=== PATIENT | male | born 1935 | race Caucasian/White ===

== ENCOUNTER 2018-08-11 19:53 | Inpatient (IN) | payer MEDICARE, OTHER ==
[~2018-08-11] VITALS: Ht 167.6 cm; Wt 54.5 kg
--- NOTE | ~2018-08-11 | EKG ---
[facility] [address] [facility] [place], [place] [address] Draft EK completed, results pending confirmation PATIENT NAME: DILIPELLIOTT Electrocardiogram DATE OF : 39 PHYSICIAN: PRELIMINARY REPORT #: [id number] REPORT IS CONFIDENTIAL AND NOT TO BE RELEASED WITHOUT AUTHORIZATION
--- OUTSIDE RECORDS SUMMARY | ~2018-08-11 | XMS | Clinical Summary ---
Demographics + + + | Address | [address] | | | [place] [address] | + + + | Home Phone | | + + + | Preferred Language | Unknown | + + + | Marital Status | | + + + | Methodist Affiliation | Unknown | + + + | Race | Unknown | + + + | Ethnic Group | Unknown | + + + Author + + + | Author | [facility] | | | and [place]to[place] | + + + | Organization | [facility] | | | and [place]to[place] [...] [place] | | | | | [phone] | | + + + + + Care Team Providers + +------+ + | Care Construction Analyst Name | Role | Phone | + [...] NEUROPATHY | | + +---+ | ATHEROSCLEROSIS, [place] ARTERY, EXTREMITY, WITH CLAUDICATION | | + [...] +--------+ +---------+--------+ | MEDICARE | MEDICA | [id number] | 09/29/19 | [phone] | | Medica | | | RE | | 03-Pre | 5 | | re | | | PART A | | sent | | | | | | AND B | | | | | | + +--------+ +--------+ +---------+--------+ | [employer] | BANKER | [id number] | | [phone] | | Indemn | [...] | | al/Fam | | 1936 | [phone] | [place] [address] | | | jorge | | | 7 (Home) | | + +--------+ +--------+ + +
[~2018-08-11 19:53] MED LIST: ASPIRIN325 MG PO; COD LIVER OIL1 EAC1 PO; DICLOFENAC SODI75 MG PO; ENALAPRIL MALEA20 MG PO; FOLIC ACID0.4 MG PO; GABAPENTIN300 MG PO; GABAPENTIN600 MG PO; LISINOPRIL30 MG PO; METHOCARBAMOL750 MG PO; MULTIVITAMINS1 EAC7 PO; OMEPRAZOLE20 MG PO
[2018-08-11] MEDS ORDERED: LISINOPRIL30 MG PO (20:08)
--- OUTSIDE RECORDS SUMMARY | 2018-08-11 20:47 | XMS | Clinical Summary ---
Demographics + + + | Address | [address] | | | [place] [address] | + + + | Home Phone | | + + + | Preferred Language | Unknown | + + + | Marital Status | | + + + | Yazidi Affiliation | Unknown | + + + | Race | Unknown | + + + | Ethnic Group | Unknown | + + + Author + + + | Author | [facility] | | | and [place]to[place] | + + + | Organization | [facility] | | | and Alebrtoana | + + + | Address | Unknown | + + + | Phone | Unavailable | + + + Support + + + + + | Name | Relationship | Address | Phone | + + + + + | Annamaria Merritt | ECON | [address] | | | | | [place] | | | | | [address] | | + + + + + Care Team Providers + +------+ + | Care Plate Maker Zinc Name | Role | Phone | + +------+ + | Saran Etienne DO | PP | | + +------+ + Allergies No Known Allergies Medications + + + +---------+------+------+-------+ | Medication | Sig | Dispensed | Refills | Star | End | Statu | | | | | | t | Date | s | | | | | | Date | | | + + + +---------+------+------+-------+ | aspirin (ASPIRIN | Take 81 mg by mouth | | 0 | 03/2 | | Activ | | EC LO-DOSE) 81 MG EC | Daily. | | | 2/20 | | e | | tablet | | | | 11 | | | + + + +---------+------+------+-------+ | diclofenac | Take 75 mg by mouth | | 0 | 03/2 | | Activ | | (VOLTAREN) 75 mg EC | Daily. | | | 2/20 | | e | | tablet | | | | 11 | | | + + + +---------+------+------+-------+ | lisinopril | Take 30 mg by mouth | | 0 | 03/2 | | Activ | | (PRINIVIL,ZESTRIL) | Daily. | | | 2/20 | | e | | 30 MG tablet | | | | 11 | | | + + + +---------+------+------+-------+ | multivitamin | Take 1 tablet daily | | 0 | 03/2 | | Activ | | (THERAGRAN) per | by mouth | | | 2/20 | | e | | tablet | | | | 11 | | | + + + +---------+------+------+-------+ | omeprazole | Take 20 mg by mouth | | 0 | / | | Activ | | (PRILOSEC) 20 mg | Daily. 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 | 07/19/2010 | + + + + + | Overview: ICD-10 Record update | + + + +---+ | HYPERTENSION | | + +---+ | PERIPHERAL NEUROPATHY | | + +---+ | ATHEROSCLEROSIS, [place] ARTERY, EXTREMITY, WITH CLAUDICATION | | + +---+ + + | Overview: ICD-10 Record update | + + Social History + +-------+ +--------+------+ | Tobacco Use | Types | Packs/Day | Years | Date | | | | | Used | | + +-------+ +--------+------+ | Never Assessed | | | | | + +-------+ +--------+------+ + + + | Sex Assigned at | Date Recorded | | | | + + + | Not on file | | + + + + + + + | Job Start Date | Occupation | Industry | + + + + | Not on file | Not on file | Not on file | + + + + + + + + | Travel History | Travel Start | Travel End | + + + + + + | No recent travel history available. | + + Last Filed Vital Signs + + + + | Vital Sign | Reading | Time Taken | + + + + | Blood Pressure | 135/70 | 08/22/2011 0000 PDT | + + + + | Pulse | - | - | + + + + | Temperature | - | - | + + + + | Respiratory Rate | - | - | + + + + | Oxygen Saturation | - | - | + + + + | Inhaled Oxygen | - | - | | Concentration | | | + + + + | Weight | 66.7 kg (147 lb) | 08/22/2011 0000 PDT | + + + + | Height | 172.7 cm (5' 8") | 08/02/2010 0000 PDT | + + + + | Body Mass Index | 22.35 | 08/02/2010 0000 PDT | + + + + Plan of Treatment + + + + + | Health Maintenance | Due Date | Last Done | Comments | + + + + + | Vaccine: | | | | | Dtap/Tdap/Td (1 - | 7 | | | | Tdap) | | | | + + + + + | Vaccine: Zoster (1 | 06/04/198 | | | | of 2) | 8 | | | + + + + + | Vaccine: | | | | | Pneumococcal 65+ | 3 | | | | Low/Medium Risk (1 | | | | | of 2 - PCV13) | | | | + + + + + | Vaccine: Influenza | | | | | (Season Ended) | 9 | | | + + + + + Results Not on filefrom Last 3 Months Insurance + +--------+ +--------+ +---------+--------+ | Payer | Benefi | Subscriber | Effect | Phone | Address | Type | | | t Plan | ID | jeramy | | | | | | / | | Dates | | | | | | Group | | | | | | + +--------+ +--------+ +---------+--------+ | MEDICARE | MEDICA | [id number] | 09/29/19 | [phone] | | Medica | | | RE | | 03-Pre | 5 | | re | | | PART A | | sent | | | | | | AND B | | | | | | + +--------+ +--------+ +---------+--------+ | [employer] | BANKER | [id number] | | [phone] | | Indemn | | | S LIFE | | 015-Pr | 4 | | ity | | | INS | | esent | | | | + +--------+ +--------+ +---------+--------+ + +--------+ +--------+ + + | Guarantor Name | Accoun | Relation to | Date | Phone | Billing Address | | | t Type | Patient | of | | | | | | | | | | + +--------+ +--------+ + + | Sigifredo Merritt | Person | Self [birth year] | [address] | | | al/Fam | | 1936 | [phone] | [place] [address] | | | jorge | | | 7 (Home) | | + +--------+ +--------+ + +
--- OUTSIDE RECORDS SUMMARY | 2018-08-11 20:47 | XMS | Clinical Summary ---
Demographics + + + | Address | [address] | | | [place] [address] | + + + | Home Phone | | + + + | Preferred Language | Unknown | + + + | Marital Status | | + + + | Orthodoxy Affiliation | Unknown | + + + | Race | Unknown | + + + | Ethnic Group | Unknown | + + + Author + + + | Author | [facility] | | | and [place]to[place] | + + + | Organization | [facility] | | | and [place]to[place] | + + + | Address | Unknown | + + + | Phone | Unavailable | + + + Support + + + + + | Name | Relationship | Address | Phone | + + + + + | Annamaria Merritt | ECON | [address] | | | | | [place] | | | | | [address] | | + + + + + Care Team Providers + +------+ + | Care Pocket Setter Lockstitch Name | Role | Phone | + [...] NEUROPATHY | | + +---+ | ATHEROSCLEROSIS, [place] ARTERY, EXTREMITY, WITH CLAUDICATION | | + [...] +--------+ +---------+--------+ | MEDICARE | MEDICA | [id number] | 09/29/19 | [phone] | | Medica | | | RE | | 03-Pre | 5 | | re | | | PART A | | sent | | | | | | AND B | | | | | | + +--------+ +--------+ +---------+--------+ | [employer] | BANKER | [id number] | | [phone] | | Indemn | [...] | | al/Fam | | 1936 | [phone] | [place] [address] | | | jorge | | | 7 (Home) | | + +--------+ +--------+ + +
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
--- NOTE | 2018-08-11 23:27 | NUR ---
PT UTILIZES CALL LIGHT, STATES THAT HE IS FINSIHED HAVING BM. PT CLEANED IN BED. TOLERATED TURNING OK. PT REQUIRES REMINDING TO TURN SLOWLY. PT BECAME NAUSEATED DURING MOVEMENT, STATES IT HAS PASSED. PT DENIES FURTHER NEEDS AT THIS TIME. ATTENDS PLACED. CALL LIGHT IN REACH. FAMILY REMAINS IN ROOM. ROOM IN VIEW OF RN STATION.
--- NOTE | 2018-08-12 02:17 | NUR ---
PT ASSESSMENT COMPLETE. PT RATES PAIN 8/10 TO R HIP, PRN DILAUDID ADMINISTERED. CMS INTACT. HEEL PROTECTORS REMAIN IN PLACE. GHOTRA CATH DRAINING CLEAR, YELLOW URINE. ATTENDS IN PLACE. PT'S RESTING AT BEDSIDE, CONTINUES TO WAIT FOR FAMILY TO ARRIVE FROM [place]. PT DENIES FURTHER NEEDS AT THIS TIME. CALL LIGHT IN REACH. ROOM IN VIEW OF RN STATION.
--- NOTE | 2018-08-12 04:30 | NUR ---
PT RESTING IN BED WITH EYES CLOSED. RESPIRATIONS EVEN AND UNLABORED. PT APPEARS TO BE SLEEPING. CALL LIGHT IN REACH. ROOM IN VIEW OF RN STATION.
--- NOTE | 2018-08-12 06:41 | NUR ---
PT ASSESSMENT COMPLETE. PT RATING PAIN 10. PRN DILAUDID ADMINISTERED. CMS INTACT TO ALL EXTREMITIES. HEEL PROTECTOR IN PLACE TO RLE. GHOTRA CATH DRAINING YELLOW URINE. PT'S ATTENDS CHANGED, PT INCONTINENT OF STOOL. PT TOLERATED TURNING OK. MD IN ROOM TO DISCUSS POC WITH PT. PT DENIES QUESTIONS OR FURTHER NEEDS AT THIS TIME. CALL LIGHT IN REACH. ROOM IN VIEW OF RN STATION.
--- NOTE | 2018-08-12 06:48 | EKG ---
[facility] [address] [facility] [place], [place] [address] Signed Normal sinus rhythm Normal ECG When compared with ECG of 11-AUG-2018 21:06, (Unconfirmed) [place] interval has decreased Confirmed by WILLA CHAMBERS MD ([id number]) on 08/12/2018 6:47:46 AM Electronically Signed By: WILLA CHAMBERS MD 08/12/18 0648 PATIENT NAME: DILIPELLIOTTPRABHAKAR BAUMAN Electrocardiogram DATE OF : 39 PHYSICIAN: WILLA CHAMBERS MD REPORT #: [id number] REPORT IS CONFIDENTIAL AND NOT TO BE RELEASED WITHOUT AUTHORIZATION
--- NOTE | 2018-08-12 08:00 | NUR ---
PT GAVE VERBAL OK TO GIVE PHI TO HIS DAUGHTER JORGE LUIS.
--- NOTE | 2018-08-12 08:21 | NUR ---
PATIENT IS AWAKE. FACED WASHED PATIENT IS NPO, CALL LIGHT IN REACH NO OTHER NEEDS AT THIS TIME.
--- NOTE | 2018-08-12 10:07 | NUR ---
DISCUSSED POC AND HISTORY WITH DR CHAMBERS. PT DRINKS AT LEAST 6 BEERS/DAY, DR CHAMBERS WILL RECOMMEND BEERS WITH MEALS POST OP.
[2018-08-12] MEDS ORDERED: BACLOFEN10 MG PO (11:40)
[2018-08-12] MEDS ORDERED: EPIDIOLEX100 MG/1 M PO (11:41)
--- NOTE | 2018-08-12 12:24 | NUR ---
PT REMOVED HIS RING, PLACED IN A SPECEMIN CUP AND KEPT IN THE BATHROOM. UPPER DENTURES AND LOWER REMOVABLE ARE REMOVED. [place]OWN COMPLETE. ONCALL TO OR ABX HANGING ON LR.
--- NOTE | 2018-08-12 12:33 | NUR ---
PT OFF THE FLOOR TO OR. PREOP ABX HANGING, PER [place], DO NOT NEED TO CALL RX FOR TXA, THEY WILL GET IT.
--- NOTE | 2018-08-12 14:17 | NUR ---
PT IN SURGERY, WILL FOLLOW NEEDED
--- NOTE | 2018-08-12 15:14 | NUR ---
UPDATED PT FAMILY THAT THE PT IS IN PACU, GETTING AN XRAY. DR CARRANZA IS IN THE ROOM TALKING WTIH FAMILY. WILL RETURN AFTER RECOVERY.
--- NOTE | 2018-08-12 15:52 | NUR ---
08/12/18 1552 Genoveva Thomas 1502 PT ARRIVED IN PACU SLEEPY. 1510 OXYGEN REMOVED. SATS 95% ON RA. ICE TO R HIP. SPINAL LEVEL AT L-1. 1535 AP PELVIS OF R HIP DONE. NO C/O'S. PT TALKING TO STAFF.
--- NOTE | 2018-08-12 15:54 | NUR ---
PT RETURNED FROM PACU VIA BED WITH SHAVON JAIN AND YOGESH RN. PT AWAKE AND ALERT, VERY TALKITIVE. UNABLE TO GET WAVEFORM ON CPOX MACHINE, TRIED ALL FINGERS. CALL INTO RT FOR ASSISTANCE. PT IS PINK, ALERT, AND TALKING. NO MOVEMENT, NO FEELING BELOW UPPER THIGH. JAY PILLOW IN PLACE, ICE PACK IN PLACE. TR HOSE AND SCD IN PLACE.
--- NOTE | 2018-08-12 17:00 | NUR ---
PT STATES HE HAS SENSATION TO KNEE LEVEL, STILL CANNOT MOVE HIS TOES. DIFFICULT TO MAINTAIN CPOX, DESPITE SEVERAL SENSORS ON FINGERS AND FOREHEAD. PT TOLERATED WATER AND IS EATING JELLO AT THIS TIME. PT TOLERATING WELL. NO NAUSEA, NO VOMITING, NO PAIN AT THIS TIME. ICE REMOVED FROM HIP. JAY PILLOW IN PLACE, SCD, TR HOSE IN PLACE.
--- NOTE | 2018-08-12 17:57 | NUR ---
PT REPORTS NOT FEELING HUNGRY AT THIS TIME, HE IS TOLERATING WATER AND A FEW BITES OF JELLO. DOES NOT WANT ANYTHING ELSE AT THIS TIME. ON RIGHT LEG, PT HAS FEELING TO ANKLE, ON LEFT LET PT HAS FEELING TO KNEE. NO MOVEMENT OF TOES AT THIS TIME.
--- NOTE | 2018-08-12 18:18 | NUR ---
PT ARRIVED BACK FROM PACU, TALKING AND ALERT. PT REPORTS FEELING IS RETURNING, ANKLE LEVEL ON RIGHT AND KNEE LEVEL ON LEFT. NO MOVEMENT IN FEET AT THIS TIME. PT REPORTS NOT FEELING HUNGRY, HAS TOLERATED WATER AND JELLO. NO PAIN, NO NAUSEA. ICE IS OFF HIP AT THIS TIME. IVF RUNNING.
--- NOTE | 2018-08-12 18:38 | NUR ---
Medications reconciled using pharmacy records and patient interview
--- NOTE | 2018-08-12 19:10 | NUR ---
BEDSIDE REPORT RECEIVED FROM OFFGOING RN. PT RESTING IN BED WITH EYES CLOSED, DOES NOT WAKE DURING REPORTS. CALL LIGHT INR EACH. ROOM IN VIEW OF RN STATION.
--- NOTE | 2018-08-12 19:25 | NUR ---
HUNG NEW BAG OF FLUIDS. VSS. PT SPINAL RESOLVING, CALF ON RIGHT LEG, HEEL ON LEFT LEG. UNABLE TO WIGGLE TOES. ICE PACK REMOVED. NOT HUNGRY, BUT HAS TOLERATED WATER AND JELLO.
--- NOTE | 2018-08-12 22:10 | NUR ---
V/S AND I&O DONE AND CHARTED. UPPER DENTURE CLEANED AND PATIENT WANTS TO HAVE IT BACK ON.
--- NOTE | 2018-08-12 23:25 | NUR ---
PT ASSESSMENT COMPLETE. PT RATES PAIN "MIDDLE OF THE ROAD", AGREES THAT IT IS 5/10. DENIES NAUSEA OR SOB AT THIS TIME. WILLAM DRESSING WITH SMALL AMOUNT OF RED SHADOWING PRESENT, WITHIN OUTLINED AREA. GREEN LIGHT FLASHING ON WILLAM BOX. SPINAL RESOLVED. CMS INTACT. ABDUCTOR PILLOW IN PLACE. SCD'S AND HEEL PROTECTORS PRESENT BILATERALLY. PT REMAINS DROWSY BUT WAKES EASILY DURING ASSESSMENT. PT ASSISTED TO DRINK WATER, DENIES FURTHER NEEDS. CALL LIGHT IN REACH. ROOM IN VIEW OF RN STATION.
--- NOTE | 2018-08-13 00:41 | NUR ---
PT RESTING IN BED WITH EYES CLOSED. RESPIRATIONS EVEN AND UNLABORED. PT APPEARS TO BE SLEEPING. CALL LIGHT IN REACH. ROOM IN VIEW OF RN STATION.
--- NOTE | 2018-08-13 02:07 | NUR ---
V/S AND I&O DONDE AND CHARTED. ICE WATER REFILLED.
--- NOTE | 2018-08-13 03:03 | NUR ---
PT RESTING IN BED WITH EYES CLOSED. RESPIRATIONS EVEN AND UNLABORED. PT APPEARS TO BE SLEEPING. SAO2 100%. PT ASSESSMENT COMPLETE. PT DOES NOT WAKE TO TOUCH DURING ASSESSMENT. CONTINUOUS PULSE OX PRESENT. PT SNORING AUDIBLY. WILLAM DRESSING INTACT. SMALL AMOUNT OF SHADOWING PRESENT, UNCHANGED FROM PREVIOUS. GREEN "OK" LIGHT FLASHIN ON WILLAM BOX. PEDAL PULSES PRESENT BILATERALLY. ABDUCTOR PILLOW PRESENT. SCD'S AND HEEL PROTECTORS PRESENT BILATERALLY. GHOTRA DRAINING CLEAR YELLOW URINE. CALL LIGHT IN REACH. ROOM IN VIEW OF RN STATION.
--- NOTE | 2018-08-13 04:50 | NUR ---
PT SLEPT WELL THIS SHIFT. CPOX IN PLACE. SA02 IN HIGH 90'S TO 100% THROUGHOUT THE SHIFT. WILLAM DRESSING TO R HIP, SMALL AMOUNT OF OUTLINED SHADOWING PRESENT, UNCHANGED THIS SHIFT. CMS INTACT, PT DENIES NUMBNESS OR TINGLING IN EXTREMTITIES. ABDUCTOR PILLOW IN PLACE BETWEEN PT LEGS. TR HOSE, SCD'S, AND HEEL PROTECTORS IN PLACE BILATERALLY. GHOTRA CATH DRAINING CLEAR YELLOW URINE. ALLEVYN FOAM TO L HIP AND COCCYX. BEER WITH MEALS. D5LR +20K @ 125.
--- NOTE | 2018-08-13 06:55 | NUR ---
BEDSIDE HANDOFF REPORT RECEIVED FROM ACCOUNTANT BOOKKEEPER RN. PT RESTING IN BED. PT DENIES PAIN AT THIS TIME. PT DENIES NEEDS.
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
--- NOTE | 2018-08-13 07:45 | NUR ---
PT RESTING IN BED. PT RATING PAIN 4/10 TO RIGHT HIP, DISCUSSED PAIN MEDICATION THIS AM BEFORE P.T. PT ON ROOM AIR, LUNG SOUNDS CLEAR, DENIES SOB, O2 SATS 95%. PT DENIES NAUSEA, BOWEL TONES ACTIVE, TOLERATING REGULAR DIET. PT WITH GHOTRA CATH IN PLACE, DRAINING YELLOW URINE. WILLAM DRESSING TO RIGHT HIP, AIR LEAK PRESENT, REINFORCED WITH MEPILEX, SEALED WITH GREEN LIGHT FLASHING, PINPOINT DRAINAGE, UNCHANGED FROM OUTLINE. CMS INTACT, WITHOUT EDEMA, DENIES NUMBNESS TINGLING. IV FLUIDS INFUSING D5NS+20MEQ K AT 125ML/HR. PT DENIES OTHER NEEDS AT THIS TIME. DISCUSSED PLAN OF CARE AND THERAPY THIS AM.
--- NOTE | 2018-08-13 08:57 | NUR ---
Patient is awake. feeling alot better. ate his breakfast. fresh water given face washed. call light in reach.
--- NOTE | 2018-08-13 10:14 | NUR ---
PT ASSISTED FROM BEDSIDE COMMODE TO BED. PT WEAK 2PA TO STAND PIVOT. SCDS, HEEL PROTECTORS AND HIP WEDGE IN PLACE. PT DENIES OTHER NEEDS AT THIS TIME.
--- NOTE | 2018-08-13 12:09 | NUR ---
PT GIVEN A BEER WITH LUNCH PER ORDER.
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
--- NOTE | 2018-08-13 14:30 | NUR ---
PT DUE TO VOID, IV FLUIDS CONTINUE TO INFUSE AT 125 ML/HR. DISCUSSED WITH DR. CARRANZA, ORDER TO DC FLUIDS, INCREASE FLOMAX TO 0.8 MG DAILY, GIVE 0.4MG FLOMAX NOW AND TO PLACE GHOTRA IF BLADDER SCAN FOR >500 ML, RBOV.
--- NOTE | 2018-08-13 14:40 | NUR ---
PT ABLE TO VOID 100 ML OF URINE, BLADDER SCAN FOR 158 ML.
--- NOTE | 2018-08-13 14:53 | NUR ---
PT RESTING IN BED. PT RATING PAIN 5/10 TO RIGHT HIP, GIVEN 1 TAB NORCO. IV ANCEF INFUSING. PT DENIES OTHER NEEDS AT THIS TIME. FAMILY AT BEDSIDE.
--- NOTE | 2018-08-13 15:45 | NUR ---
PT SALINE LOCKED. PT RESTING IN BED. PT PROVIDED FRESH WATER. PT DENIES OTHER NEEDS AT THIS TIME.
--- NOTE | 2018-08-13 16:33 | NUR ---
PT ALERT/ORIENTED. PT ON ROOM AIR, LUNG SOUNDS CLEAR. PAIN WELL CONTROLLED WITH 1 TAB NORCO. WILLAM DRESSING TO RIGHT HIP, AIR LEAK THIS AM, REINFORCED, DRAINAGE UNCHANGED. PT WORKED WITH PHYSICAL THERAPY, ABLE TO WALK SHORT DISTANCE IN ROOM WITH 2PA AND FWW. GHOTRA REMOVED THIS AM, VOIDING QS. PT DENIES NAUSEA, TOLERATING REGULAR DIET, BEERS WITH MEALS. CMS INTACT. SCDS, HEEL PROTECTORS AND ABDUCTOR WEDGE. IV SALINE LOCKED.
--- NOTE | 2018-08-13 19:00 | NUR ---
SHIFT REPORT RECEIVED. PATIENT RESTING IN BED. APPEARS TO BE SLEEPING. RR 18. CALL LIGHT IN REACH, BED ALARM ON.
--- NOTE | 2018-08-13 20:45 | NUR ---
PATIENT PROVIDED WITH EVENING MEDICATIONS. REPORTS INCREASED PAIN 5/10, PRN NORCO PROVIDED. OFFERED PATIENT ICE PACKS, BUT PATIENT REFUSED. CMS INTACT IN [place] LOWER EXTREMITIES. WILLAM DRESSING ON RIGHT HIP, GREEN LIGHT FLASHING. NO NEW DRAINAGE NOTED, SMALL PIN POINT AREAS X2. PATIENT DENIES ANY CONCERNS. LUNGS ARE CLEAR. ABD SOFT AND NONTENDER. CIWA SCORE OF 2. REMINDED PATIENT TO USE CALL LIGHT, WHICH IS IN REACH. REPOSITIONED IN BED. ABD PILLOW, SCDS, AND HEEL PROTECTORS IN PLACE. BEDSIDE TABLE WITHIN REACH.
--- NOTE | 2018-08-13 22:02 | NUR ---
V/S AND I&O TAKEN AND CHARTED. ICE WATER REFILLED. PATIENT STATED NO NEEDS AT THIS TIME.
--- NOTE | 2018-08-13 22:30 | NUR ---
PATIENT CALLED TO HAVE URNAL EMPTIED. EVELYNE ROMANO ASSISTED PATIENT.
--- NOTE | 2018-08-13 23:39 | NUR ---
PATIENT APPEARS TO BE SLEEPING SOUNDLY. RR 18. CALL LIGHT IN REACH.
--- NOTE | 2018-08-14 03:00 | NUR ---
PATIENT REQUESTED HIS URNAL BE EMPTIED. PATIENT DENIES PAIN AT THIS TIME. WILLAM DRESSING IN PLACE, GREEN LIGHT NOTED. CMS INTACT. PATIENT AAOX4. CIWA SCORE OF 2, UNCHANGED. CALL LIGHT IN REACH.
--- NOTE | 2018-08-14 06:05 | NUR ---
PATIENT SLEPT WELL THIS SHIFT. PAIN WELL CONTROLLED WITH PRN PAIN MEDS X2. PATIENT HAS BEEN USING URNAL AND NOT BEEN UP THIS SHIFT. ENCOURAGED UP FOR BREAKFAST. WILLAM DRESSING INTACT, SCANT DRAINAGE NOTED. PATIENT'S CIWA REMAINED 2 THIS SHIFT WITH NO SIGNIFICANT SIGNS OF WITHDRAWL. SCDS AND ABDUCTOR PILLOW IN USE. VS STABLE. TOLERATING REGULAR DIET.
--- NOTE | 2018-08-14 06:50 | NUR ---
ASSISTED PATIENT UP TO THE RECLINER. PATIENT IS WEAK, 2PA WITH FWW. PAIN MINIMAL, BUT DIFFICULTY GETTING LEG TO MOVE AND LEFT KNEE APPEARED WEAK. PATIENT POSITIONED FOR COMFORT. WARM BLANKET PROVIDED AND BRUSH FOR HAIR. CALL LIGHT IN REACH.
--- NOTE | 2018-08-14 07:26 | NUR ---
BEDSIDE HANDOFF REPORT RECEIVED FROM TEACHER MUSIC RN. PT SITTING IN CHAIR. PT DENIES NEEDS AT THIS TIME.
--- NOTE | 2018-08-14 07:45 | NUR ---
PT SITTING IN CHAIR. PT ON ROOM AIR, LUNG SOUNDS CLEAR, DENIES SOB. PT REPORTING FEELING DIZZY AFTER NORCO THIS AM, BLOOD PRESSURE 109/58, HR 82, DISCUSSED SIDE EFFECT OF NORCO. PT DENIES NAUSEA, BOWEL TONES ACTIVE. CMS INTACT, WITHOUT EDEMA. WILLAM DRESSING TO RIGHT HIP, GREEN LIGHT FLASHING, NO NEW DRAINAGE. IV X2 SALINE LOCKED, FLUSHED, PATENT. DISCUSSED PLAN OF CARE FOR THE DAY. PT DENIES OTHER NEEDS AT THIS TIME.
--- NOTE | 2018-08-14 09:40 | NUR ---
MORNING MEDICATIONS ADMINISTERED. PT SITTING IN CHAIR. RIGHT AC IV DISCONTINUED. PT DENIES OTHER NEEDS AT THIS TIME.
--- NOTE | 2018-08-14 10:42 | NUR ---
PATIENT GOT UP TO [facility] FOR BREAKFAST. NOW HE IS LAYING IN BED AGAIN. WATER REFRSHED. CALL LIGHT IN REACH. NO FURTHER NEEDS AT THIS TIME.
--- NOTE | 2018-08-14 12:45 | NUR ---
PT RESTING IN BED. ABDUCTOR WEDGE ADJUSTED FOR COMFORT. PT PROVIDED WITH FRESH WATER. PT DENIES OTHER NEEDS AT THIS TIME.
--- NOTE | 2018-08-14 12:51 | NUR ---
CALLED MARCO ANTONIO IN [phone]--MESSAGE LEFT. CALLED SAMUEL DANIEL IN [place] AT [phone] MESSAGE LEFT. CALLED [facility] MESSAGE LEFT AT [phone], CALLED [phone] MESSAGE LEFT.
--- NOTE | 2018-08-14 13:38 | NUR ---
PT WAS SITTING IN CHAIR, ALERT AND ORIENTED. PT EXPRESSED RIGHT AWAY THAT HE DID NOT LIKE THE FEELING HE WAS HAVING FROM PAIN MEDS. THE "HIGH" HE STATED WAS NOT PLEASANT EXPERIENCE FOR HIM. PT MENTIONED HE HAD SHARED THIS WITH HIS RN AND DR. CARRANZA. PT WAS PLEASANT, EXTENDED A BLESSING. WILL FOLLOW NEEDED.
--- NOTE | 2018-08-14 15:34 | NUR ---
PATIENT IN BED RESTING. HE USED THE URINAL. WASN'T HUNGR FOR LUNCH. FAMILY IN ROOM. CALL LIGHT IN REACH. NO FURTHER NEEDS AT THIS TIME.
--- NOTE | 2018-08-14 15:37 | NUR ---
PT RESTING IN BED. REPOSITIONED. WILLAM DRESSING WORKING, NO NEW DRAINAGE. PT DENIES OTHER NEEDS AT THIS TIME. PT STATES PAIN IS TOLERABLE, DECLINES PAIN MEDICATION.
--- NOTE | 2018-08-14 17:30 | NUR ---
PT RATIGN PAIN -12/07, DISUCSSED PAIN MANAGEMENT, PT NERVOUS TO TRY NORCO AGAIN, GIVEN 0.5 TAB NORCO PER ORDER. DISCUSSED THAT IF PT HAS DIZZINESS OR FEELS "HIGH" THEN WE COULD CALL MD FOR ALTERNATIVE ORDER. PT DENIES OTHER NEEDS AT THIS TIME.
--- NOTE | 2018-08-14 18:11 | NUR ---
PT RESTING IN BED. PT ASSISTED WITH TELEVISION. CIWA ASSESSED, SCORE 2. PT DENIES OTHER NEEDS AT THIS TIME.
--- NOTE | 2018-08-14 18:25 | NUR ---
PT ALERT/ORIENTED. PT ON ROOM AIR, LUNG SOUNDS CLEAR. TOLERATING REGULAR DIET. WILLAM DRESSING TO RIGHT HIP, WITHOUT AIR LEAK, NO CHANGE IN DRAINAGE. PT WORKED WITH PT/OT. PT APPREHENSIVE TO TAKE PAIN MEDICATION, MINIMAL PAIN THROUGHOUT SHIFT, INCREASED PAIN IN EVENING, PT TOOK 0.5 TAB NORCO. PT VOIDING QS. CIWA SCORE OF 2. 2PA WITH FWW.
--- NOTE | 2018-08-14 18:40 | NUR ---
PT BLOOD PRESSURE REASSESSED, WNL. PT DENIES OTHER NEEDS AT THIS TIME.
--- NOTE | 2018-08-14 19:00 | NUR ---
SHIFT REPORT RECEIVED. PATIENT RESTING IN BED. DENIES ANY NEEDS AT THIS TIME.
--- NOTE | 2018-08-14 21:45 | NUR ---
EVENING MEDS GIVEN PER ORDER. PATIENT WAS SLEEPING SOUNDLY. WOKE TO VOICE AND TOUCH. PATIENT DENIES PAIN, RATES 3/10. WILLAM DRESSING INTACT, GREEN LIGHT NOTED. NO NEW DRAINAGE. CMS INTACT. DENIES THE USE OF ICE PACKS TO AREA. SCDS IN USE. PATIENT REFUSED HEEL PROTECTORS. DENTURES REMOVED, PLACED INTO CLEANING SOLUTION. BEDSIDE TABLE WITHIN REACH. CALL LIGHT IN HAND.
--- NOTE | 2018-08-14 22:30 | NUR ---
PATIENT'S URNAL EMPTIED. REPOSTIONED PATIENT IN BED. PATIENT DENIES PAIN. LIGHTS TURNED OUT. CALL LIGHT IN REACH.
--- NOTE | 2018-08-15 00:04 | NUR ---
PATIENT REQUESTED TO BE REPOSITIONED IN BED. PATIENT IS FRUSTERATED WITH THE ABDUCTOR PILLOW AND TRYING TO USE THE URNAL. REMOVED ABDUCTOR PILLOW FOR NOW, REMINDED PATIENT OF IMPORTANCE OF PROPER ALIGNMENT OF HIS HIP JOINT. PATIENT ALSO REPORTS PAIN IN HIS HEELS. DISCUSSED RISK OF BREAKDOWN AND USE OF HEEL PROTECTORS AND PATIENT AGREES TO USE THEM FOR THE TIME BEING. PATIENT ALSO AGREED TO HALF A PAIN PILL BUT VERBALIZED HIS DISLIKE OF NARCOTIC MEDICATIONS. ICE PACKS X2 PLACED ON RIGHT HIP. PATIENT DISLIKES THE COLD BUT AGREES TO TRY IT AT THIS TIME. URNAL EMPTIED. BEDSIDE TABLE IN REACH. SCDS ON. CALL LIGHT IN HAND. ALLOWED PATIENT TO REST.
--- NOTE | 2018-08-15 02:45 | NUR ---
ICE PACK IN PATIENT'S BED LEAKED. PATIENT DENIES PAIN AT REST. 2PA UP TO RECLINER, STAND PIVOT WITH FWW. PATIENT TOLERATED WELL. BED LINENS CHANGED. PATIENT ASSISTED BACK TO BED. FRESH ICE PACKS IN PLACE. PATIENT REPORTS PAIN WITH MOVEMENT BUT IS ABLE TO REST ONCE IN BED. DENIES FURTHER NEEDS. SCDS AND HEEL PROTECTORS IN PLACE. CALL LIGHT IN REACH.
--- NOTE | 2018-08-15 04:30 | NUR ---
PATIENT APPEARS TO BE SLEEPING SOUNDLY. RR 18. CALL LIGHT IN REACH.
--- NOTE | 2018-08-15 05:29 | NUR ---
PATIENT WAS ABLE TO SLEEP MOST THE NIGHT. USES URNAL, OUTPUT QS. PATIENT OUT OF BED ONCE THIS SHIFT. STAND PIVOT TO THE RECLINER, TOLERATED WELL. WILLAM DRESSING INTACT, MINIMAL DRAINAGE NOTED. PRN NORCO X1, 1/2 TAB PER PATIENT REQUEST. ICE PACKS TO AREA. HEEL PROTECTORS, SCDS, AND ABDUCTOR PILLOW TOLERATED. PATIENT AAOX4. NO SIGNS OF WITHDRAWL.
--- NOTE | 2018-08-15 06:57 | NUR ---
PATIENT UP TO RECLINER. 2PA WITH FWW. PATIENT TOLERATED WELL. BEDSIDE TABLE IN REACH. PATIENT DENIES FURTHER NEEDS.
--- NOTE | 2018-08-15 07:30 | NUR ---
REPORT RECIEVED FROM MATCHER LEATHER PARTS RN. T UP IN CHAIR FOR BREAKFAST. REPORTS PAIN 4.10 IN RIGHT HIP. NO FURTHER NEEDS. CALL LIGHT IN REACH.
--- NOTE | 2018-08-15 07:40 | NUR ---
PATIENT SITTING UP IN CHAIR. LINENS CHANGED. FACE AND HANDS CLEANED. ICE WATER GIVEN. CALL LIGHT WITHIN REACH. NO OTHER NEEDS AT THIS TIME
--- NOTE | 2018-08-15 09:00 | NUR ---
PHYSICAL THERAPY IN TO WORK WITH PT.
--- NOTE | 2018-08-15 09:05 | NUR ---
TALKED WITH THE PT THIS AM AND HE SAID HE IS WILLING TO GO TO [facility] FOR HIS REHAB, I HAD TALKED WITH [facility] PRIOR TO TALKING WITH THE PT TO SEE IF THEY WOULD BE ABLE TO TAKE HIM. SHE SAID THAT THERE WAS A POSS THEY MAY NOT BE ABLE TO. I THEN TALKED WITH THE PT ABOUT SOME OTHER OPTIONS AVAILABLE TO KEEP HIM IN THE AREA PER HIS WISHES, HE SAID TO CHECK WITH AND [place] [facility]. CALLED [facility] IN [place], THEY SAID THEY HAD A BED AVAILABLE. I ALSO CALLED [facility] AND MESSAGE WAS LEFT FOR THEM TO CALL ME.
--- NOTE | 2018-08-15 09:30 | NUR ---
PATIENT SITTING UP IN BED WATCHING TV. PATIENT USES THE URINAL. VITAL SIGNS AND I&O DONE. ICE WATER GIVEN. PATIENT USING A CLEAN GOWN. CALL LIGHT WITHIN REACH. NO OTHER NEEDS AT THIS TIME
--- NOTE | 2018-08-15 10:20 | NUR ---
TALKED WITH PT STEP DAUGHTER ELISSA AND SHE STATED SHE WAS ON HER WAY TO THE [facility] TO MEET HER SISTERS AND THEN TO TALK WITH ME. INFORMED HER TO LET THE STAFF KNOW WHEN THEY WERE HERE AND I WOULD COME RIGHT DOWN.
--- NOTE | 2018-08-15 10:53 | NUR ---
PT IN BED WITH SCD'S OIN PLACE.
--- NOTE | 2018-08-15 12:15 | NUR ---
PT IN BED, REFUSED LUNCH SATING, "I NEVER EAT LUNCH". REPORTS 5/10 PAIN IN RIGHT HIP. 0.5 TAB NORCO ADMINISTERED. ICE PACK APPLIED TO RIGHT HIP. SCD'S IN PLACE. CALL LIGHT IN REACH. FAMILY AT BEDSIDE.
--- NOTE | 2018-08-15 13:05 | NUR ---
STOPPED BY THE PTS ROOM AFTER BEING AT MEETING I HAD RECIEVED A MESSAGE AT 1230 THAT THEY WANTED TO VISIT WITH ME, I TOLD THE LARD BLEACHER I WOULD BE THERE SOON MY MEETING WAS DONE. WHEN WE STOPPED BY THE ROOM THE DAUGHTERS HAD LEFT. TALKED WITH PT AND HE STATED THINGS HAD CHANGED AND HE WOULD BE ABLE TO GO TO [facility] SO I BETTER LOOK INTO THAT. TOLD HIM I WOULD.
--- NOTE | 2018-08-15 13:18 | NUR ---
RECIEVED MESSAGE FROM SEBASTIÁN AT [facility], RETURNED CALL, SHE STATED THEY DO HAVE A MALE BED AVAILABLE. WILL SEND CLINICALS. ALSO HEARD FROM ZACK AT [facility] SHE WOULD LIKE CLINCALS FAXED TO [facility]. FAXED CLINICALS INCLUDING FACE SHEET, ER NOTES AND SUMMARY, H AND P, CONSULT, OP NOTE, PROG NOTE, PT AND OT EVAL AND NOTE. RECIEVED FAX CONFIRMATION FROM T.
--- NOTE | 2018-08-15 13:41 | NUR ---
PATIENT SITTING UP IN BED WATCHING TV. FAMILY IN ROOM. VITAL SIGNS AND I&O DONE. CALL LIGHT WITHIN REACH. NO OTHER NEEDS AT THIS TIME
--- NOTE | 2018-08-15 14:55 | NUR ---
FAXED CLINICALS TO [facility] IN [facility]. FAX INCLUDED FACE SHEET, ER NOTES AND SUMMARY, H AND P, CONSULT, OP NOTE, PROG NOTES, PT AND OT EVAL AND NOTES. RECIEVED FAX CONFIRMATION FROM [facility] IN [facility].
--- NOTE | 2018-08-15 17:00 | NUR ---
PT UP TO CHAIR FOR DINNER. ICE TO RIGHT HIP. PAIN 10/07 1/2 TAB PAIN MEDICATION GIVEN. DENIES FURTHER NEEDS.
--- NOTE | 2018-08-15 17:21 | NUR ---
@@@@@@@@PHONE NUMBERS ELISSA [phone] JORGE LUIS [phone] BO [phone]
--- NOTE | 2018-08-15 17:31 | NUR ---
PATIENT SITTING UP IN CHAIR. VITAL SIGNS AND I&O DONE. CALL LIGHT WITHIN REACH. NO OTHER NEEDS AT THIS TIME
--- NOTE | 2018-08-15 17:34 | NUR ---
PATIENT SITTING UP IN CHAIR. HANDS AND FACE CLEANED. CALL LIGHT WITHIN REACH. NO OTHER NEEDS AT THIS TIME
--- NOTE | 2018-08-15 17:50 | NUR ---
PATIENT SITTING UP IN CHAIR. PATIENT BACKS TO BED. PATIENT USES A WALKER. TWO PERSON ASSISTING. WARM BLANKET PROVIDED. CALL LIGHT WITHIN REACH. NO OTHER NEEDS AT THIS TIME
--- NOTE | 2018-08-15 18:24 | NUR ---
PT HAD GOOD DAY, WORKED WITH PT. ICE TO RIGHT HIP. PICCO DRESSING C/D/I WITH OLD SHADOWING. GREEN LIGHT BLINKING. 1/2 TAB NORCO FOR PAIN. SCD'S HEEL PROTECTORS. PT REFUSING ABDUCTOR PILLOW. EDUCATED ON NOT CROSSING LEGS. 1-2PA WITH FWW. AA0X4. PLAN FOR [place] TOMORROW.
--- NOTE | 2018-08-15 19:05 | NUR ---
SHIFT RE[facility] AT BEDSIDE. PT RESTING IN BED, EYES CLOSED, RR WNL. PT AWAKE WHEN THIS RN ASSESSED WILLAM DRESSING. GREEN [place] LIGHT FLASHING, SCANT OLD DRAINAGE NOTED, WILL MONITOR.PT DENIES NEEDS, CALL LIGHT IN REACH.
--- NOTE | 2018-08-15 20:15 | NUR ---
EMPTIED PT URINAL. BEDSIDE TABLE AND CALL LIGHT IN REACH. HE HAS NO OTHER NEEDS AT THIS TIME.
--- NOTE | 2018-08-15 21:20 | NUR ---
ASSESSMENT COMPLETE, SCHEDULED MEDICATIONS GIVEN (SEE EMAR). PT DENIES PAIN AT THIS TIME. A/O. VSS. PT DENIES ADDITIONAL NEEDS, URINAL EMPTIED. PT SALINE LOCKED, IV SITE PATENT AND WNL. CALL LIGHT IN REACH.
--- NOTE | 2018-08-15 23:30 | NUR ---
PT RESTING IN BED, RA, RR WNL. NO DISTRESS NOTED, CALL LIGHT IN REACH.
--- NOTE | 2018-08-15 23:51 | NUR ---
PER PT REQUEST I EMPTIED HIS URINAL. HE NEEDS NOTHING MORE AT THIS TIME. CALL LIGHT IN REACH.
--- NOTE | 2018-08-16 01:05 | NUR ---
PT RESTING IN BED, NO DISTRESS NOTED. RR WNL. CALL LIGHT IN REACH.
--- NOTE | 2018-08-16 03:33 | NUR ---
PT RESTING IN BED, BILATERAL SCD'S AND HEEL PROTECTORS IN PLACE. RR WNL, NO SIGNS OF PAIN OR DISTRESS NOTED. CALL LIGHT IN REACH.
--- NOTE | 2018-08-16 04:41 | NUR ---
PT HAD UNREMARKABLE NIGHT, SLEPT FOR MOST OF THE SHIFT. VSS. PT A/O, PAIN WELL CONTROLLED, DENIED NEED FOR PAIN MEDICATION THIS SHIFT. PT SALINE LOCKED, IV SITE WNL. PT ON REGULAR DIET, BOWEL TONES ACTIVE, CAN HAVE 2 BEERS WITH MEALS. PT VOIDING QS THIS SHIFT, NO BM. PT 1-2PA, MOVES SLOW. WILLAM DRESSING TO RIGHT HIP, SCANT OLD DRAINAGE. GREEN [place] LIGHT FLASHING. PT USES CALL LIGHT APPROPERIATELY.
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
--- NOTE | 2018-08-16 06:59 | NUR ---
pt repors 08/07 pain. 1/2 norco tablet given per pt request. no further needs, call light in reach.
--- NOTE | 2018-08-16 07:32 | NUR ---
REPORT RECEIVED FROM MILL SUPERVISOR RN. PT IN BED AAOX4. CALL LIGHT IN REACH. 05/01 NORCO TAB ADMINSITERED FOR 08/07 PAIN IN RIGHT HIP. CALL LIGHT IN REACH. DENIES NEEDS AT THIS TIME.
[2018-08-16] MEDS ORDERED: HYDROCODON-ACE1 EA11 PO (08:03)
[2018-08-16] MEDS ORDERED: GABAPENTIN300 MG PO (08:03)
--- NOTE | 2018-08-16 09:35 | NUR ---
RECIEVED FAX CONFIRMATION OF ORDERS SENT.
--- NOTE | 2018-08-16 09:36 | NUR ---
FAXED ORDERS AND RX AND PASRR TO [facility]. CALLED AND SPOKE WITH ZACK.
--- NOTE | 2018-08-16 09:41 | NUR ---
PATIENT SITTING UP IN CHAIR. BEDBATH DONE. ORAL CARE DONE. PATIENT USING A CLEAN GOWN. LINENS CHANGED. VITAL SIGNS AND I&O DONE. CALL LIGHT WITHIN REACH. NO OTHER NEEDS AT THIS TIME
--- NOTE | 2018-08-16 10:44 | NUR ---
REPORT CALLED TO VLAD JAIN AT [facility].
--- NOTE | 2018-08-16 10:45 | NUR ---
RECIEVED CALL FROM ZACK STATING ORDERS OK AND THAT [facility] SHOULD BE HERE AROUND 11 AM TO PICK PT UP. PT, FAMILY AND RN AND SOLE CONDITIONER INFORMED. PACKET TO NURSES STATION.
--- NOTE | 2018-08-16 11:28 | NUR ---
PATIENT SITTING UP IN CHAIR. FAMILY IN ROOM. FINAL VITAL SIGNS WERE OBTAINED PRIOR TO DISCHARGE FROM THE UNIT.
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
== END 2018-08-16 11:45 | DRG 470 ==
LOC: ED 19:53 → MS 19:54
PROVIDERS: ADMIT Specialist
PROC: 3E0T33Z Introduction of Anti-inflammatory into Peripheral Nerves and Plexi, Percutaneous Approach (ICD-10-PCS; 2018-08-12)
PROC: 3E0T3BZ Introduction of Anesthetic Agent into Peripheral Nerves and Plexi, Percutaneous Approach (ICD-10-PCS; 2018-08-12)
PROC: 0SRR019 Replacement of Right Hip Joint, Femoral Surface with Metal Synthetic Substitute, Cemented, Open Approach (ICD-10-PCS; principal; 2018-08-12 13:45)
DX: S72.001A Fracture of unspecified part of neck of right femur, initial encounter for closed fracture (principal); E87.1 Hypo-osmolality and hyponatremia; G89.18 Other acute postprocedural pain; M19.90 Unspecified osteoarthritis, unspecified site; I25.119 Atherosclerotic heart disease of native coronary artery with unspecified angina pectoris; I10 Essential (primary) hypertension; F10.10 Alcohol abuse, uncomplicated; W01.0XXA Fall on same level from slipping, tripping and stumbling without subsequent striking against object, initial encounter; Y92.008 Other place in unspecified non-institutional (private) residence as the place of occurrence of the external cause; Z87.891 Personal history of nicotine dependence; Z96.642 Presence of left artificial hip joint; Z79.1 Long term (current) use of non-steroidal anti-inflammatories (NSAID); Z79.82 Long term (current) use of aspirin; Z79.899 Other long term (current) drug therapy
CPT/HCPCS: 01210; 36415; 51702; 64447; 72170; 73502; 76942; 80048; 80053; 81001; 83735; 85025; 86850; 86900; 86901; 93005; 93010; 94762; 97110; 97116; 97162; 99284-25; C1713; C1776; J0690; J1170; J2250; J2370; J2405; J2704; J3010; J7030; J7120

== ENCOUNTER 2020-09-07 07:29 | Emergency (ER) | payer MEDICARE, OTHER ==
[~2020-09-07] VITALS: Ht 167.6 cm; Wt 44.7 kg
[~2020-09-07 07:29] MED LIST changes: +BACLOFEN10 MG PO; +EPIDIOLEX100 MG/1 M PO; +HYDROCODON-ACE1 EA11 PO
--- NOTE | 2020-09-07 09:42 | NUR ---
EKG obtained and handed to Dr Amaya at 0936.
[2020-09-07] MEDS ORDERED: LISINOPRIL10 MG PO (10:21)
--- NOTE | 2020-09-07 13:30 | NUR ---
RESPONDED TO A CODE BLUE IN ED. COMPRESSIONS IN PROGRESS, DR HAYNES REQUESTED I NOTIFY PTS' AND HAVE HER COME IMMEDIATELY. SANTOS ARRIVED, DR HAYNES MET WITH HER IN [facility]. SHE SAID HE WOULD WANT TO LIVE-FULL CODE MEASURES CONTINUED. HEART BEAT AND PULSE RETURNED, PT INTEBATED. DR HAYNES EXPLAINED THE SERIOUSNESS OF PT'S CONDITION. PT WAS LIFEFLIGHTED TO [facility]. I GAVE PHONE # AND ADDRESS TO SANTOS FOR [facility] AND ENCOURAGED HER UPON RETURNING HOME TO NOTIFY HER KIDS, SHE ACKNOWLEDGED.ARRANGED CARE RIDE, PRAYED FOR BOTH. WILL FOLLOW NEEDED
--- NOTE | 2020-09-08 13:52 | EKG ---
[facility] [address] [facility] [place] [address] Signed Sinus tachycardia Nonspecific intraventricular block Abnormal ECG When compared with ECG of 11-AUG-2018 21:07, QRS duration has increased Nonspecific T wave abnormality now evident in Inferior leads T wave inversion now evident in Lateral leads QT has lengthened Confirmed by MITCH MCGINNIS DO ([id number]) on 09/08/2020 1:52:07 PM Electronically Signed By: MITCH MCGINNIS DO 09/08/20 1352 PATIENT NAME: ELLIOTT CHERRY Electrocardiogram DATE OF : 39 PHYSICIAN: MITCH MGCINNIS DO REPORT #: [id number] REPORT IS CONFIDENTIAL AND NOT TO BE RELEASED WITHOUT AUTHORIZATION
== END 2020-09-07 10:35 | disposition short-term general hospital (02) ==
LOC: ED 07:29
DX: I46.9 Cardiac arrest, cause unspecified (principal); E87.2 Acidosis; I10 Essential (primary) hypertension; Z87.891 Personal history of nicotine dependence; Z79.899 Other long term (current) drug therapy; Z20.822 Contact with and (suspected) exposure to COVID-19
CPT/HCPCS: 31500; 36600; 51702; 71045; 80053; 82803; 84484; 85025; 93005; 93010; 94002; 99291; C9803; J0171; J3010; J7030; J7070; U0003